=== PATIENT | female | born 1970 | race Caucasian/White ===

== ENCOUNTER 2017-01-24 21:58 | Emergency (ER) | payer OTHER ==
--- NOTE | ~2017-01-24 | ER ---
PATIENT'S NAME: CALVIN ELLISON [facility] AGE: 46 Y [address] ROOM: [place] [address] LOCATION: ED ADMIT DATE: 01/24/2017 ER/Outpatient Report DISCHARGE DATE: 01/25/2017 FAMILY PHYSICIAN: Brian Oakley MD ATTENDING PHYSICIAN: Catrina Spears HISTORY OF PRESENT ILLNESS: A 46-year-old female who presents with left groin pain that she says is consistent with her pain when she gets kidney stones. It started about 17 hours ago. She has had nausea and vomiting x6. Denies any fever, chills, pain with urination, urinary frequency, or urgency. Denies any blood in the urine as well. The patient says it is sharp and stabbing. She went to her primary care doctor Dr. Oakley' office earlier today and got a shot of Demerol, which she says did not really help her; so, that is why she came here. She was also given a script for hydrocodone, which she did not fill and just came here. She says the pain is stabbing and currently at 9/10. PAST MEDICAL HISTORY: Includes asthma, hypertension, cystine kidney stones, for which she is prescribed penicillamine, but says that she cannot afford the medication at this time. PAST SURGICAL HISTORY: Multiple lithotripsies. SOCIAL HISTORY: She does not smoke, drink, or use any drugs. REVIEW OF SYSTEMS: Reviewed by me and negative with the exception of those discussed in the HPI. PHYSICAL EXAMINATION: VITAL SIGNS: The patient is 5 feet, 9 inches, she is 112.8 kilos, blood pressure is 120/88, heart rate 105, respiratory rate 20, temp is 98.8, and satting 96% on room air. GENERAL: The patient is holding emesis bag. She looks uncomfortable. She is lying on her right-side and holding her left groin area. She is not actively vomiting or retching at this time. She looks mildly uncomfortable, but she is not writhing in pain or unable to sit still. HEART: Her heart rate is tachycardic at this time to 102 beats per minute. LUNGS: Lung sounds are clear. ABDOMEN: She has some tenderness in that left groin area, left CVA tenderness as well, no right CVA tenderness, no other right lower quadrant tenderness, epigastric tenderness, or right upper quadrant tenderness. SKIN: Warm, dry, and intact. PATIENT'S NAME: CALVIN ELLISON [facility] AGE: 46 Y [address] ROOM: [place], [place] [address] LOCATION: [facility] ADMIT DATE: 01/24/2017 ER/Outpatient Report DISCHARGE DATE: 01/25/2017 FAMILY PHYSICIAN: Brian Oakley MD ATTENDING PHYSICIAN: Catrina Spears EMERGENCY ROOM COURSE: So we put an IV in her and gave her 4 mg of morphine, which took her pain from a 9/10 to a 1/10, resting, and a lot more comfortable now. She just says her urine was checked as well. It was a clean-catch. She has no symptoms. There is some blood and some mild leuks, but would not treat at this time. She says she does have an appointment with Dr. Almendarez tomorrow. I think we can pain control her here and send her home to follow with Dr. Almendarez tomorrow and she should fill up her hydrocodone before she goes home. She otherwise has stable vital signs, she is not hypotensive, she does exhibit signs of infection, her pain is tolerable at this time; so, we will send her home. We will have her follow up with Dr. Almendarez in the morning. IMPRESSION: Left lower quadrant pain, kidney stones. MD NICOLE HOOVER/delvis /[id number] d: 01/25/17 0255 t: 01/28/17 0026, OUTPATIENT REPORT
[~2017-01-24 21:58] MED LIST: ALEVE PM CAPLE1 EACH PO; ALEVE220 MG PO; DITROPAN XL5 MG PO; FLOMAX0.4 MG PO; LISINOPRIL-HCT1 EAC2 PO; NORCO 5-325 TA1 EACH PO; PROVENTIL OR V6.7 GM INH; ROXICODONE 5MG (5 MG PO; TYLENOL EXTRA500 MG PO; XANAX0.25 MG PO; ZOFRAN4 MG PO
[2017-01-24 22:58] LABS: BILIRUBIN URINE NEGATIVE (NEGATIVE); BLOOD URINE 150 /UL (NEGATIVE); COLOR URINE YELLOW (YELLOW); GLUCOSE URINE NEGATIVE (NEGATIVE); KETONE URINE NEGATIVE (NEGATIVE); LEUKOCYTES URINE 25 /UL (NEGATIVE); NITRITE URINE NEGATIVE (NEGATIVE); PROTEIN URINE 100 mg/dL (NEGATIVE); SPEC GRAVITY URINE 1.015 (1.003-1.035); TURBIDITY URINE CLEAR (CLEAR); UROBILINOGEN URINE NORMAL (NORMAL)
[2017-01-24 23:11] LABS: BACTERIA URINE RARE (NEGATIVE); MUCUS URINE 1+ (NEGATIVE); RBC URINE 20-50 #/HPF (NEGATIVE); WBC URINE 0-2 #/HPF (NEGATIVE)
[2017-01-25] MEDS ORDERED: PROVENTIL OR V6.7 GM INH (18:34)
[2017-01-25] MEDS ORDERED: DEPEN250 MG PO (18:37)
== END 2017-01-25 00:59 | disposition disaster alternative care site (69) ==
LOC: GMED 21:58
PROVIDERS: Emergency Medicine
DX: N20.0 Calculus of kidney (principal); J45.909 Unspecified asthma, uncomplicated; I10 Essential (primary) hypertension
CPT/HCPCS: J2270; J2405

== ENCOUNTER 2017-01-25 16:00 | Inpatient (IN) | payer OTHER ==
[~2017-01-25] VITALS: Ht 174 cm; Wt 105.6 kg
--- NOTE | ~2017-01-25 | HP ---
PATIENT'S NAME: [facility] AGE: 46 Y [address] ROOM: [place] [address] LOCATION: [facility] ADMIT DATE: 01/25/2017 History & Physical DISCHARGE DATE: FAMILY PHYSICIAN: Brian Oakley MD ATTENDING PHYSICIAN: Karan CRISTINA DATE OF SERVICE: CHIEF COMPLAINT: Left flank pain. HISTORY OF PRESENT ILLNESS: The patient is a 46-year-old female with past medical history of hypertension and cystine kidney stone, who presents here with left flank pain secondary to kidney stone. The patient reports that for the past few days she has been experiencing excruciating pain, which she rates 10/10. She reports that the pain starts from the left flank and radiates to her groin. Pain is associated with nausea, vomiting. The patient was seen in the emergency department today and was sent to follow up with Dr. Madrid. The patient was seen in Dr. Madrid' office today and was sent for direct admission for possible cystoscopy with stent placement. The patient currently is in severe pain, rates the pain 10/10, and emotionally labile. She denies any fever, chills, dysuria, abdominal pain, diarrhea, chest pain, and shortness of breath. The patient has had multiple kidney stones pain in the past, and her last cystoscopy and stent placement was in August 2016. PAST MEDICAL HISTORY: Hypertension and kidney stone. PAST SURGICAL HISTORY: Multiple lithotripsy and cystoscopy with stent placement. FAMILY HISTORY: Grandmother has kidney stone and also sister had history of multiple kidney stones. SOCIAL LIFE: The patient denies smoking and drinking. 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 ALLERGIES: NO KNOWN DRUG ALLERGIES. MEDICATIONS: 1. Tylenol. PAT[facility]: [facility] AGE: 46 Y [address] ROOM: [place] [address] LOCATION: [facility] ADMIT DATE: 01/25/2017 History & Physical DISCHARGE DATE: FAMILY PHYSICIAN: Brian Oakley MD ATTENDING PHYSICIAN: Karan CRISTINA 2. Albuterol. 3. [place]. 4. Lisinopril and hydrochlorothiazide. 5. Zofran. 6. Depen 250 mg tablet p.o. q.i.d. REVIEW OF SYSTEMS: All systems have been reviewed and are negative except for what is mentioned in the HPI. PHYSICAL EXAMINATION: VITAL SIGNS: Temperature of 98.7, blood pressure of 188/95, heart rate of 92, and saturating 96% on room air. HEAD: Normocephalic, atraumatic. EYES: The patient is currently in tears due to pain. Sclerae non-icterus. NOSE: No nasal discharge. EARS: No ear discharge. NECK: Supple. CHEST: Clear to auscultation bilaterally. HEART: Regular rate and rhythm. No murmurs, rubs, or gallops heard. ABDOMEN: Soft, nontender. Bowel sounds present. MUSCULOSKELETAL: Left CVA tenderness. SKIN: Warm to touch. No obvious lesion. PRESS HAND: The patient is alert and oriented. Motor and sensory grossly intact. LABORATORY DATA: Lab pending currently. 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 The patient now admitted to our hospital as an inpatient due to intractable pain, controlled with IV Dilaudid and Toradol. The patient is scheduled for cystoscopy with stent placement tomorrow. 1. Intractable pain, etiology secondary to nephrolithiasis. We will start the patient on IV Dilaudid 1 mg q.3 hours. Also, ordered ketorolac 30 mg IV every 6 hours. Renal function panel ordered. If renal function panel shows abnormal creatinine or elevated creatinine, to hold ketorolac. Not to try ketorolac until renal function panel is ordered. 2. Nausea and vomiting, etiology secondary to nephrolithiasis. We will start the patient on Zofran and IV fluid. The patient n.p.o. after midnight. 3. Dehydration, etiology secondary to nausea and vomiting. Continue IV fluid currently. We will acquire renal function panel. 4. Hypertension, currently uncontrolled, most likely exacerbated due to PATIENT'S NAME: CALVIN ELLISON [facility] AGE: 46 Y [address] ROOM: [id number] [place] [id number] LOCATION: [facility] ADMIT DATE: 01/25/2017 History & Physical DISCHARGE DATE: FAMILY PHYSICIAN: Brian Oakley MD ATTENDING PHYSICIAN: Karan CRISTINA severe pain. We will continue home medication and control pain. 5. Nephrolithiasis, on IV fluids. We will add Flomax. Discussed the patient with Dr. Madrid. The patient is scheduled for cystoscopy with possible stent placement. N.p.o. after midnight. Greater than 30 minutes was spent in the patient care. Assessment and plan was discussed with Dr. Madrid with Urology and the patient also. Nursing staff was also notified about the plan. The patient's question answered with satisfaction. We will admit the patient as an inpatient for intractable pain, nausea and vomiting secondary to nephrolithiasis, and also the patient is scheduled for cystoscopy with stent placement. The patient also failed outpatient treatment with pain control and antiemetic as the patient was seen in the emergency department yesterday evening. MD ERIC JALLOH/delvis /[id number] D: [id number] T: [id number] HISTORY & PHYSICAL
--- NOTE | ~2017-01-25 | OR ---
PATIENT'S NAME: CALVIN ELLISON [facility] AGE: 46 Y [address] ROOM: [place] [address] LOCATION: [facility] ADMIT DATE: 01/25/2017 OR/Procedure Report DISCHARGE DATE: FAMILY PHYSICIAN: Brian Oakley MD ATTENDING PHYSICIAN: Karan CRISTINA SURGEON: Litzy Madrid MD FLIGHT PHYSICIAN: DATE OF PROCEDURE: 01/26/2017 PREOPERATIVE DIAGNOSIS: Left ureter stone. POSTOPERATIVE DIAGNOSIS: Left ureter stone. PROCEDURE PERFORMED: Left cystoscopy retrograde pyelogram, left ureteroscopy with laser lithotripsy, stone extraction, stent placement. ANESTHESIA: MAC. COMPLICATIONS: None. INDICATION FOR PROCEDURE: The patient is a 46-year-old female complaining of left lower flank pain along with nausea and vomiting. Abdominopelvic CT scan reveals a 5 to 6 mm mid left ureter stone with hydronephrosis. DETAILS OF PROCEDURE: After the informed consent was obtained, the patient was taken to the operating room. A MAC anesthetic was applied and she was placed in a dorsal lithotomy position. The groin area was prepped and draped in normal sterile fashion. Cystoscope was introduced into the urethra and the bladder without difficulty. Next, a yellow Flexi-Tip catheter was placed in the distal left ureteral orifice. Retrograde pyelogram was then taken. No obvious stone was identified. I then probed a rigid ureteroscope over the guidewire up into the distal ureter where small stone fragments were noted. I used the tripod basket and removed 1 of the smaller fragments. I then went up further in the distal ureter and saw the larger stone. I engaged that with the tripod basket, but I was unable to remove it. I disengaged this and introduced a holmium laser and the stone was broken up into smaller pieces. I used the tripod to remove the 2 largest pieces which will be sent to [facility] for stone analysis. Following that, the ureteroscope was removed. The guidewire was back-loaded over the cystoscope. A 6-Kazakh multi-length ureteral stent was passed over the guidewire up into the renal pelvis. Radiographic imaging showed good position of the stent. The patient tolerated the procedure well and was transferred to recovery room in good condition. PATIENT'S NAME: CALVIN ELLISON [facility] AGE: 46 Y [address] ROOM: [address] [address] LOCATION: [facility] ADMIT DATE: 01/25/2017 OR/Procedure Report DISCHARGE DATE: FAMILY PHYSICIAN: Brian Oakley MD ATTENDING PHYSICIAN: Karan CRISTINA MD DEYA LOCKE/delvis /[id number] CC: Brionna Islas PA-C d: 01/26/17 0935 t: 01/26/17 1237, OPERATIVE SUMMARY
--- NOTE | ~2017-01-25 | CON ---
[facility] AGE: 46 Y [address] ROOM: [place] [address] LOCATION: [facility] [place] ADMIT DATE: 01/25/2017 Consultation DISCHARGE DATE: 01/26/2017 FAMILY PHYSICIAN: Brian Oakley MD ATTENDING PHYSICIAN: Karan CRISTINA DATE OF CONSULTATION: 01/26/2017 REFERRING PHYSICIAN: Litzy Madrid MD HISTORY OF PRESENT ILLNESS: The patient is a 46-year-old female who had acute onset of left flank pain along with nausea and vomiting yesterday. She was seen in the emergency room. An abdominopelvic CT scan was performed which revealed an approximately 5 to 6 mm [id number] left ureter stone. The patient has a prior history of nephrolithiasis with cystine stones. I discussed cystoscopy with stent placement and possible ureteroscopy. PAST MEDICAL HISTORY: Includes asthma, hypertension, and history of nephrolithiasis. PAST SURGICAL HISTORY: Includes multiple ESWLs and ureteroscopy. MEDICATIONS: See detailed history and physical. ALLERGIES: NONE. SOCIAL HISTORY: The patient is a nonsmoker with no history of alcohol abuse. REVIEW OF SYSTEMS: Negative. PHYSICAL EXAMINATION: GENERAL: A middle-aged female, in some distress. LUNGS: Clear bilaterally. CARDIAC: Regular rhythm and rate. ABDOMEN: Soft, with normoactive bowel sounds throughout. There is left lower flank tenderness with palpation. NEUROLOGIC: Grossly intact. SKIN: Within normal limits. MUSCULOSKELETAL: Full range of motion. [facility] AGE: 46 Y [address] ROOM: [place] [address] LOCATION: [facility] ADMIT DATE: 01/25/2017 Consultation DISCHARGE DATE: 01/26/2017 FAMILY PHYSICIAN: Brian Okaley MD ATTENDING PHYSICIAN: Karan CRISTINA IMPRESSION: Left ureter stone. PLAN: We will schedule the patient for cystoscopy with retrograde pyelograms, left stent, and possible left ureteroscopy. Risks and benefits discussed. MD DEYA LOCKE/delvis /[id number] CC: Brian Oakley MD d: 01/26/17 1324 t: 02/19/17 1501, CONSULTATION REPORT
--- NOTE | ~2017-01-25 | DS ---
PATIENT'S NAME: CALVIN ELLISON [facility] AGE: 46 Y [address] ROOM: [address] [place] [address] LOCATION: [facility] ADMIT DATE: 01/25/2017 Discharge Summary DISCHARGE DATE: 01/26/2017 FAMILY PHYSICIAN: Brian Oakley MD ATTENDING PHYSICIAN: Kaarn CRISTINA PRINCIPAL DIAGNOSIS: Left urolithiasis status post laser lithotripsy, stone extraction, and stent placement. SECONDARY DIAGNOSIS: Hypertension. HOSPITAL COURSE: A 46-year-old lady with a past medical history of cystein stones kidney disease as well as hypertension, was admitted to the hospital with intractable left flank pain. Another left kidney stone was suspected and she was admitted from Dr. Madrid, urologist, office to the hospital. She was stated on IVF as well as pain medication. She was taken to the OR, and laser lithotripsy was done, stone was extracted and stent was placed. She did well postoperatively. She rated pain 0/10 after the procedure. No fever, chills, nausea, vomiting reported. We will discharge her home today. No medication changes were made on discharge. HOME MEDICATION: Include, Zofran 4 mg p.o. 6 hours p.r.n. for nausea and vomiting, lisinopril hydrochlorothiazide 20/25 mg 1 tablet p.o. every night at bedtime, Tylenol 500 mg p.o. every 4 hours p.r.n., hydrocodone acetaminophen 5/325 one to two tablets p.o. every 6 hours p.r.n. for pain, albuterol 1 puff inhalation every day, penicillamine 250 mg p.o. four times daily. ACTIVITY: As tolerated. DIET: Low-sodium diet. FOLLOWUP: Follow up with Dr. Madrid in 3 weeks. HEMODYNAMICS ON DISCHARGE: Stable. MD ZARINA PATEL/delvis /[id number] d: 01/27/17 0237 t: 04/30/17 1520, DISCHARGE SUMMARY
[2017-01-25] MEDS ORDERED: PROVENTIL OR V6.7 GM INH (18:34)
[2017-01-25] MEDS ORDERED: DEPEN250 MG PO (18:37)
[2017-01-25 21:16] LABS: BASOPHIL # 0.1 K/uL (0.0-0.2); BASOPHIL % 0.4 %; EOSINOPHIL # 0.2 K/uL (0.0-0.5); EOSINOPHIL % 1.3 %; HEMATOCRIT 37.2 % (33.0-46.0); HEMOGLOBIN 12.1 g/dL (10.0-15.0); IMMATURE GRANULOCYTE % 0.2 %; LYMPHOCYTE % 15.1 %; MCH 26.7 pg (27.0-34.0); MCHC 32.5 gm/dL (32.0-36.5); MCV 81.9 fl (83.0-98.0); MONOCYTE # 0.6 K/uL (0.0-1.0); MONOCYTE % 4.1 %; MPV 9.4 fl (9.4-12.4); NEUTROPHIL # (ANC) 10.5 K/uL (1.8-7.8); NEUTROPHIL % 78.9 %; NRBC % 0 /100WBC (0-0.00); PLATELET COUNT 263 K/uL (150-450); RBC 4.54 M/uL (3.50-5.50); WBC 13.3 K/uL (4.0-11.0)
[2017-01-25 21:25] LABS: INR - (THERAPEUTIC) 0.96 (0.92-1.07); PROTIME 10.1 SECONDS (9.8-11.4)
[2017-01-25 21:29] LABS: ALBUMIN 3.8 gm/dL (3.5-5.0); ANION GAP 13.7 (10.0-19.0); CALCIUM 8.7 mg/dL (8.5-10.5); CREATININE 1.2 mg/dL (0.5-1.1); PHOSPHORUS 3.1 mg/dL (2.5-4.9); POTASSIUM 3.7 mMol/L (3.7-5.1)
--- NOTE | 2017-01-26 05:11 | NUR ---
Significant Event: PATIENT IS ALERT AND ORIENTATED. AMBULATES WITH STANDBY ASSIST AND GB. HAS BEEN NPO SINCE 0000 FOR POSS[address] TODAY DR. LYNCH TO CONSULT THIS AM. IV TO FA WITH FLUIDS RUNNING AT 150 ML/HR. DILAUDID GIVEN IV AT 2034 WITH ZOFRAN. NORCO 2 TABS GIVEN AT 2256. PAIN HAS BEEN CONTROLED AFTER NORCO DOSE PAITENT RESTING COMFORTABLY. Follow up:
== END 2017-01-26 15:55 | disposition disaster alternative care site (69) | DRG 694 ==
LOC: GMSU 17:22
PROVIDERS: ADMIT Internal Medicine
PROC: 0TF78ZZ Fragmentation in Left Ureter, Via Natural or Artificial Opening Endoscopic (ICD-10-PCS; principal; 2017-01-25)
PROC: 0T778DZ Dilation of Left Ureter with Intraluminal Device, Via Natural or Artificial Opening Endoscopic (ICD-10-PCS; 2017-01-25)
DX: N13.2 Hydronephrosis with renal and ureteral calculous obstruction (principal); I10 Essential (primary) hypertension; J45.909 Unspecified asthma, uncomplicated; Z79.2 Long term (current) use of antibiotics
CPT/HCPCS: C1725; C1769; J1170; J1956; J2405; J7030